=== PATIENT | female | born 1955 | race Caucasian/White ===

== ENCOUNTER 2017-12-29 12:21 | Emergency (ER) | payer BC ==
[~2017-12-29] VITALS: Ht 172.7 cm; Wt 79.8 kg
--- NOTE | 2017-12-29 12:24 | NUR ---
MD KELLY AT BEDSIDE
--- NOTE | 2017-12-29 12:25 | NUR ---
JOCELIN FROM [employer] [facility] DT CHEST PALPITATION. PER REPORT, PATIENT'S HR RANGES FROM 70-170BPM. PATIENT RECEIVED AWAKE AND ALERT, APPEARS IN NO DISTRESS. RESPIRATION EVEN AND UNLABORED. SKIN IS WARM TO TOUCH AND NON DIAPHORETIC. PATIENT IS AFEBRILE. DENIES ANY CHEST PAIN, HOWEVER REPORTED CHEST PALPITATION. GOWNED PT AND PLACED ON TELE MONITOR. VSS.
[2017-12-29] MEDS ORDERED: METOPROLOL TARTRATE 25 MG TABLET ONE (12:30)
--- NOTE | 2017-12-29 12:30 | NUR ---
EKG IN PROGRESS
[2017-12-29] MEDS: METOPROLOL TARTRATE 25 MG TABLET PO ONE (12:32)
--- NOTE | 2017-12-29 12:37 | NUR ---
PT MEDICATED ORDERED. KITCHENHAND AT FOR BLOOW DRAW.
[2017-12-29 12:38] LABS: BASOPHILS # (AUTO) 0.1 /CMM (0.0-0.2); BASOPHILS % (AUTO) 0.9 % (0.0-2.0); EOSINOPHILS % (AUTO) 0.8 % (0.0-6.0); HEMATOCRIT 42 % (33-45); HEMOGLOBIN 15.1 g/dL (11.5-14.8); LYMPHOCYTES # (AUTO) 1.7 /CMM (0.8-4.8); LYMPHOCYTES % (AUTO) 22.6 % (20.0-44.0); MEAN CORPUSCULAR HGB CONC 36 g/dl (31.0-36.0); MEAN CORPUSCULAR VOLUME 84 fL (82-100); MONOCYTES # (AUTO) 0.5 /CMM (0.1-1.30); MONOCYTES % (AUTO) 7.2 % (2.0-12.0); NEUTROPHILS % (AUTO) 68.5 % (43.0-81.0); PLATELET COUNT (AUTO) 262 /CMM (150-450); RDW COEFFICIENT OF VARIATION 11.9 (11.5-15.0); RED BLOOD CELL COUNT(AUTO) 4.98 MIL/uL (4.0-5.2); WHITE BLOOD COUNT (AUTO) 7.4 K/uL (4.3-11.0)
[2017-12-29 12:48] LABS: CALCIUM, SERUM 9.5 mg/dL (8.5-10.1); CARBON DIOXIDE 25 mmol/L (21-32); CHLORIDE 103 mmol/L (98-107); CREATININE 0.9 mg/dL (0.6-1.3); GLUCOSE 106 mg/dL (74-106); POTASSIUM 3.1 mmol/L (3.5-5.1); SODIUM SERUM 138 mmol/L (136-145); UREA NITROGEN, BLOOD 19 mg/dL (7-18)
[2017-12-29 12:53] LABS: INR 0.95 (0.85-1.15)
[2017-12-29 12:58] LABS: TROPONIN I < 0.017 ng/mL (0.00-0.056)
--- NOTE | 2017-12-29 13:21 | NUR ---
CALLED THE OFFICE OF DR GARCIA AND HE WAS REPAGED.
--- NOTE | 2017-12-29 13:30 | NUR ---
IV removed. Catheter intact and site benign. Pressure and 4x4 applied to site. No bleeding noted.
--- NOTE | 2017-12-29 13:43 | NUR ---
Patient discharged to home in stable condition. Written and verbal after care instructions given. Patient verbalizes understanding of instruction.
[2017-12-29 13:44] VITALS: BP 147/83
== END 2017-12-29 13:44 | disposition home or self-care (01) ==
LOC: ER 12:23
DX: I48.0 Paroxysmal atrial fibrillation (principal); F41.9 Anxiety disorder, unspecified; E03.9 Hypothyroidism, unspecified; K21.9 Gastro-esophageal reflux disease without esophagitis
CPT/HCPCS: 36415; 71045-TC; 80048-TC; 84443-TC; 84484-TC; 85025-TC; 85730-TC; A4606; Z7610